=== PATIENT | male | born 1960 | race Caucasian/White ===

== ENCOUNTER 2021-05-03 13:25 | Emergency (ER) | payer MEDICARE ==
[2021-05-03 13:34] VITALS: BP 0/0
== END 2021-05-03 13:34 | disposition expired ==
LOC: ED 13:25 → EDBD 13:25 → ED 13:34
PROC: 5A12012 Performance of Cardiac Output, Single, Manual (ICD-10-PCS; principal; 2021-05-03)
DX: I46.9 Cardiac arrest, cause unspecified (principal); I11.0 Hypertensive heart disease with heart failure; I50.9 Heart failure, unspecified